=== PATIENT | female | born 1965 | race Caucasian/White ===

== ENCOUNTER 2024-12-13 10:01 | Outpatient (CLI) | payer OTHER | END 2024-12-13 10:02 | disposition home or self-care (01) | LOC: CSHMAMMO 10:01 | PROVIDERS: ATTEND Obstetrics & Gynecology | DX: Z12.31 Encounter for screening mammogram for malignant neoplasm of breast (principal); Z90.11 Acquired absence of right breast and nipple | CPT/HCPCS: 77063; 77067 ==